=== PATIENT | female | born 1995 | race Caucasian/White ===

== ENCOUNTER 2018-05-16 13:59 | Emergency (ER) | payer OTHER ==
--- NOTE | 2018-05-16 14:08 | ED.PDOC ---
History of Present Illness - General Chief Complaint: GI Problem Stated Complaint: abdominal pain Time Seen by Provider: 05/16/18 14:03 Information Source: patient Exam Limitations: no limitations - History of Present Illness Initial Comments: Brianna Laurent 33 y/o female stated had stabbing mid abdominal pain starting this am and getting worse.Denies N/V/D;had bm this am but no appetite.No blood in stool,no vaginal bleeding ,no sti Abdominal Pain Onset Location: periumbilical Pain Radiation: no radiation Quality: steady, stabbing Timing/Duration: 4-6 hours Improving Factors: nothing Worsening Factors: nothing Associated Symptoms: denies symptoms Review of Systems - Review of Systems Constitutional: States: no symptoms reported EENTM: States: no symptoms reported Respiratory: States: no symptoms reported Cardiology: States: no symptoms reported Gastrointestinal/Abdominal: States: see HPI Genitourinary: States: no symptoms reported All other Systems: Reviewed and Negative, No Change from Baseline Past Medical History (General) - Patient Medical History Hx Seizures: No Hx Asthma: No Surgical History: no surgical history - Social History Hx Tobacco Use: No Hx Physical Abuse: No Hx Emotional Abuse: No - Female History Patient is a Female of Child Bearing Age (10 -59 yrs old): Yes Hx Last Menstrual Period: 04/17/18 Patient : No Family Medical History - Family History Mother Family History: No Known Physical Exam - Physical Exam General Appearance: Alert, Comfortable, No apparent distress Eyes, Ears, Nose, Throat Exam: normal ENT inspection, pharynx normal Neck: supple Respiratory: lungs clear, normal breath sounds Cardiovascular/Chest: normal peripheral pulses, regular rate, rhythm, no murmur Peripheral Pulses: No deficit Gastrointestinal/Abdominal: soft, no organomegaly, tenderness - mid abdomen ,no peritoneal signs Back Exam: no CVA tenderness, no vertebral tenderness Neurologic: alert, oriented x 3 Skin Exam: normal color, warm/dry Progress - Progress Progress: 05/16/18 14:16 Vital Signs - 8 hr 05/16/18 14:05 Temperature 99 F Pulse Rate [ 98 H Left Radial] Respiratory 22 Rate Blood Pressure 162/110 [Left Arm] O2 Sat by Pulse 99 Oximetry - Results/Orders Results/Orders: 05/16/18 14:10 COMPLETE METABOLIC PROFILE Stat LIPASE Stat CBC (AUTOMATED) W/AUTO DIFF Stat HCG,QUALITATIVE URINE Stat URINALYSIS Stat 05/16/18 15:02 Hold Metformin x 48Hrs [id number] 05/16/18 15:53 GC CHLAMYDIA RNA,TMA Stat Laboratory Results - last 24 hr 05/16/18 05/16/18 05/16/18 14:26 14:26 14:26 WBC 8.6 RBC 4.95 Hgb 15.1 Hct 43.8 MCV 88.5 MCH 30.4 MCHC 34.4 RDW 13.8 Plt Count 268 MPV 8.8 Absolute Neuts (auto) 4.20 Absolute Lymphs (auto) 3.20 Absolute Monos (auto) 0.90 H Absolute Eos (auto) 0.30 Absolute Basos (auto) 0.10 Neutrophils % 48.2 Lymphocytes % 37.6 Monocytes % 9.8 H Eosinophils % 3.5 Basophils % 0.9 Sodium 140 Potassium 3.6 Chloride 108 Carbon Dioxide 24 Anion Gap 11.6 L BUN 10 Creatinine 0.86 BUN/Creatinine Ratio 11.6 Random Glucose 96 Serum Osmolality 278.3 Calcium 9.4 Total Bilirubin 0.5 AST 19 ALT 19 Alkaline Phosphatase 62 Serum Total Protein 7.9 Albumin 4.8 Globulin 3.1 Albumin/Globulin Ratio 1.5 Lipase Urine Color Yellow Urine Appearance Clear Urine pH 6.5 Ur Specific [place] 1.010 Urine Protein Negative Urine Glucose (UA) Negative Urine Ketones Negative Urine Blood Negative Urine Nitrite Negative Urine Bilirubin Negative Urine Urobilinogen 0.2 Ur Leukocyte Esterase Negative Urine RBC 0 Urine WBC 0 Ur Epithelial Cells 3-5 Urine Bacteria 0 Urine HCG, Qual 05/16/18 05/16/18 14:26 14:26 WBC RBC Hgb Hct MCV MCH MCHC RDW Plt Count MPV Absolute Neuts (auto) Absolute Lymphs (auto) Absolute Monos (auto) Absolute Eos (auto) Absolute Basos (auto) Neutrophils % Lymphocytes % Monocytes % Eosinophils % Basophils % Sodium Potassium Chloride Carbon Dioxide Anion Gap BUN Creatinine BUN/Creatinine Ratio Random Glucose Serum Osmolality Calcium Total Bilirubin AST ALT Alkaline Phosphatase Serum Total Protein Albumin Globulin Albumin/Globulin Ratio Lipase 33 Urine Color Urine Appearance Urine pH Ur Specific [place] Urine Protein Urine Glucose (UA) Urine Ketones Urine Blood Urine Nitrite Urine Bilirubin Urine Urobilinogen Ur Leukocyte Esterase Urine RBC Urine WBC Ur Epithelial Cells Urine Bacteria Urine HCG, Qual Negative - EKG/XRAY/CT CT Ordered: Yes - abd/pelvisno acute abnormalities: Departure - Departure Clinical Impression: Abdominal pain Qualifiers: Abdominal location: lower abdomen, unspecified Qualified Code(s): R10.30 - Lower abdominal pain, unspecified Time of Disposition: 15:58 Disposition: Discharge to Home or Self Care Condition: Good Departure Forms: ED Discharge - Pt. Copy, Patient Portal Self Enrollment Instructions: DI for Abdominal Pain-Adult Prescriptions: Tramadol HCl 50 mg PO TID PRN #7 tab PRN Reason: Pain Home Medications: Ambulatory Orders Tramadol HCl 50 mg PO TID PRN #7 tab 05/16/18 Additional Instructions: Follow up with primary Md 18 May 2018
[2018-05-16 14:14] VITALS: TEMP 99
[2018-05-16] MEDS ORDERED: LACTATED RINGERS 1,000 ML IVS ONE (14:16)
[2018-05-16 15:14] VITALS: O2SAT 98
--- NOTE | 2018-05-16 15:49 | CT ---
PROCEDURE: Abdomen/Pelvis w/Contrast HISTORY: pain Indication: Abdominal pain Comparison: None . Technique: CT of the abdomen and pelvis was done with intravenous contrast. Images were obtained from the lung base to the level of the pubic symphysis in axial plane, followed by orthogonal sagittal and coronal reconstruction. Oral contrast was not given for the study. The patient was injected with radiographic contrast intravenously, without any documented immediate adverse reactions. This exam was performed according to our departmental dose-optimization program, which includes automated exposure control, adjustment of the mA and/or KV according to the patient's size and/or use of iterative reconstruction technique. FINDINGS: Images through the lung bases do not show any focal infiltrates or pleural effusions. The liver, gallbladder, pancreas, spleen and the bilateral adrenal glands appear unremarkable. The bilateral kidneys enhance with contrast in a normal fashion. The urinary bladder is unremarkable . The bilateral ureters and the bilateral periureteral soft tissues and fat planes are unremarkable. The small bowel appears unremarkable, without any evidence of small bowel obstruction or bowel wall thickening. There is no CT evidence of acute appendicitis, pericecal inflammatory change or ileocecal mesenteric adenitis. The ileocecal junction appears unremarkable. There is no CT evidence of acute colonic diverticulitis or colitis or large bowel obstruction. There is significant constipation The splenic and portal veins are of normal caliber, without any filling defects. There is no pathological lymphadenopathy in the retroperitoneum or in the pelvic region. There is no evidence of free fluid or free air in the abdomen or the pelvic region. There is no clinically significant abdominal aortic aneurysm. There is no clinically significant inguinal or ventral hernia. A benign 2 cm enhancing follicular cyst is seen in the left ovary not requiring any imaging follow-up. An anteverted uterus is seen The visualized lumbar spine is unremarkable . The paravertebral soft tissues are unremarkable. The remainder of the pelvic structures are unremarkable. IMPRESSION: There is significant constipation. Location of Interpretation: Teleradiology Electronically signed by: Alejandro Ferrara MD 05/16/2018 3:48 PM CDT Workstation: [id number]
[2018-05-16 16:09] VITALS: BP 137/77
== END 2018-05-16 16:08 | disposition home or self-care (01) ==
LOC: EDBD 13:59 → ER 13:59
DX: R10.30 Lower abdominal pain, unspecified (principal)
CPT/HCPCS: 36415; 74177; 80053; 81001; 81025; 83690; 85025; 87491; 87591; J7120